=== PATIENT | female | born 1995 | race African-American/Black ===

== ENCOUNTER 2019-06-05 21:29 | Emergency (ER) | payer MEDICAID, OTHER ==
[~2019-06-05] VITALS: Ht 167.6 cm; Wt 47.6 kg
[2019-06-05] MEDS ORDERED: HYDROcodone-ACET 5/325MG TAB PO ONE (23:00)
[2019-06-05] MEDS ORDERED: HYDROcodone-ACET 5/325MG TAB ONE (23:03)
[2019-06-06] MEDS ORDERED: HYDROcodone-ACET 5/325MG TAB PO ONE (01:45)
[2019-06-06] MEDS ORDERED: BACLOFEN 10 MG TAB PO ONE (01:45)
[2019-06-06 01:53] VITALS: BP 129/80
== END 2019-06-06 01:48 | disposition home or self-care (01) ==
LOC: EDBD 21:29 → ER 21:32
DX: S16.1XXA Strain of muscle, fascia and tendon at neck level, initial encounter (principal); R51 Headache; V43.62XA Car passenger injured in collision with other type car in traffic accident, initial encounter; Y93.89 Activity, other specified; Y92.410 Unspecified street and highway as the place of occurrence of the external cause; Y99.8 Other external cause status
CPT/HCPCS: 70140; 72040